=== PATIENT | female | born 1990 | race American Indian/Alaskan Native ===

== ENCOUNTER 2018-04-20 15:13 | Emergency (ER) | payer SELFPAY ==
[2018-04-20] MEDS ORDERED: XYLOCAINE 1% 20 mL INFILTRATI ONE (17:44)
[2018-04-20] MEDS ORDERED: NORCO 5/325 PO ONE (17:44)
[2018-04-20] MEDS ORDERED: KEFLEX PO ONE (17:44)
--- NOTE | 2018-04-20 17:51 | Emergency Department Report ---
Abscess Boil HPI - HPI Chief Complaint: Skin/Abscess/Foreign Body Stated Complaint: BOIL ON PELVIC/PAIN Time Seen by Provider: 04/20/18 17:17 Duration: 2 Days Location: Other ([facility]) History: Yes Pain, No Fever, No Purulent Drainage, No Numbness, No Foreign Body , No Previous History, No Insect Bite Home Medications: Previous Rx's Medication Instructions Recorded Last Taken Type cephALEXin [Keflex] 500 mg PO Q12HR #20 cap 04/20/18 Unknown Rx Allergies/Adverse Reactions: Allergies Allergy/AdvReac Type Severity Reaction Status Date / Time Penicillins Allergy Vomiting Verified 04/20/18 15:18 ED Review of Systems ROS: Stated complaint: BOIL ON PELVIC/PAIN Other details as noted in HPI Comment: Unobtainable due to pts medical conditions Constitutional: see HPI. denies: chills Eyes: denies: eye pain ENT: denies: ear pain, throat pain Respiratory: denies: see HPI, cough, orthopnea Cardiovascular: denies: chest pain, palpitations Endocrine: denies: excessive sweating, flushing Gastrointestinal: denies: abdominal pain, nausea, vomiting Genitourinary: denies: urgency, dysuria Musculoskeletal: denies: back pain Skin: lesions (ABSCESS R SIDE SYMPH [facility]BIS). denies: rash Neurological: denies: headache, weakness Psychiatric: denies: anxiety, depression Hematological/Lymphatic: denies: easy bleeding ED Past Medical Hx - Past Medical History Hx Asthma: Yes - Surgical History Past Surgical History?: Yes Additional Surgical History: - Social History Smoking Status: Never Smoker Substance Use Type: None - Medications Home Medications: Home Medications Medication Instructions Recorded Confirmed Last Taken Type cephALEXin [Keflex] 500 mg PO Q12HR #20 cap 04/20/18 Unknown Rx ED Abscess Boil Physical Exam - Exam General: Vital signs noted. No distress. Alert and acting appropriately. Front/Back of Body, Lg (Color): 1 - ABSCESS Size: 2 cm Exam: Yes Tenderness, Yes Fluctuance, Yes Heart Murmur, Yes Normal Neurologic Exam, Yes Normal Circulation, No Surrounding Cellulites/Erythema, No Lymphangitis, No Crepitation I & D Note - I & D Note I & D Note: ID WO DIFFICULTY. SMALL AMOUNT PURULENT DRAINAGE. NO PACKING ED Course Vital Signs 04/20/18 15:18 Temperature 98.1 F Pulse Rate 84 Respiratory 16 Rate Blood Pressure 120/76 O2 Sat by Pulse 99 Oximetry Critical care attestation.: If time is entered above; I have spent that time in minutes in the direct care of this critically ill patient, excluding procedure time. ED Medical Decision Making - Differential Diagnosis ABSCESS ED Disposition Clinical Impression: Abscess Disposition: DC-01 TO HOME OR SELFCARE Is pt being admited?: No Does the pt Need Aspirin: No Condition: Stable Instructions: Abscess (ED) Additional Instructions: ESPOM SALT SOAKS THREE TIMES PER DAY FOR 20 MINUTES EACH TIME MED ORDERED UNTIL GONE DIET TOLERATED HYDRATE WELL ACTIVITY TOLERATED SKIN CARE DISCUSSED Referrals: LAVON ELENA MD [Primary Care Provider] - 3-5 Days JACQUI CORDOVA MD [Staff Physician] - 3-5 Days Time of Disposition: 17:51
[2018-04-20 18:33] LABS: HCG Qualitative,Urine Negative (Negative)
[2018-04-20 18:41] VITALS: BP 118/71
== END 2018-04-20 18:40 | disposition home or self-care (01) ==
LOC: ED 15:13
DX: L02.215 Cutaneous abscess of perineum (principal); J45.909 Unspecified asthma, uncomplicated; Z88.0 Allergy status to penicillin
CPT/HCPCS: 81025; 99283